=== PATIENT | male | born 1970 | race Caucasian/White ===

== ENCOUNTER 2020-11-16 10:19 | Day surgery (SDC) | payer OTHER ==
[~2020-11-16] VITALS: Ht 170.2 cm; Wt 82.0 kg
[2020-11-16 11:38] LABS: CHLORIDE 105 mEq/L (98-107)
[2020-11-16 11:40] LABS: BASOPHILS % 1.9 % (0.0-2.0); EOSINOPHILS % 2.4 % (0.0-5.0); HEMATOCRIT. 41.2 % (42.0-52.0); HEMOGLOBIN. 14.4 g/dL (14.0-18.0); MEAN CORPUSCULAR HEMOGLOBIN 31.2 pg (28.0-32.0); MEAN CORPUSCULAR VOLUME 89.3 fL (80.0-94.0); MEAN PLATELET VOLUME 7.7 fl (7.4-10.4); MONOCYTES % 9.3 % (2.0-8.0); NEUTROPHILS % 44.4 % (40.0-76.0); PLATELET 298 x1000/uL (130-400); PROTHROMBIN TIME 10.2 sec (9.6-11.0); RED BLOOD CELL COUNT 4.62 mill/uL (4.7-6.1); RED CELL DISTRIBUTION WIDTH 12.7 % (11.6-14.6)
[2020-11-16] MEDS ORDERED: MIDAZOLAM HCL 2 MG/2 ML VIAL ONE ×3 (11:44→13:29)
[2020-11-16] MEDS ORDERED: FENTANYL CITRATE/PF 50MCG/ML 2ML VIAL ONE (11:44)
[2020-11-16] MEDS ORDERED: ROCURONIUM BROMIDE 10MG/ML VIAL 5ML IV ONE (11:44)
[2020-11-16] MEDS ORDERED: HYALURONATE SODIUM 10 MG/ML 0.55ML SYRINGE IO ONE ×2 (11:52→13:16)
[2020-11-16] MEDS ORDERED: BALANCED SALT IRRIG SOLN COMB1 500ML OP SCH (12:00)
[2020-11-16 12:12] VITALS: BP 139/92
[2020-11-16] MEDS ORDERED: TRYPAN BLUE 0.5 ML DISP.SYRIN IO ONE (12:46)
[2020-11-16] MEDS ORDERED: TROPICAMIDE 1% OPHTH DROPS 15ML LEFTEYE ONE (13:00)
[2020-11-16] MEDS ORDERED: CYCLOPENTOLATE HCL 1% OPHTH DROPS 2ML LEFTEYE ONE (13:00)
[2020-11-16] MEDS ORDERED: PHENYLEPHRINE HCL 10% OPHTH DROPS 5ML LEFTEYE ONE (13:00)
[2020-11-16] MEDS ORDERED: EPHEDRINE SULFATE 50MG/ML VIAL ONE (13:15)
[2020-11-16] MEDS ORDERED: PROPOFOL 200MG/20ML VIAL IV ONE ×2 (13:15→13:37)
[2020-11-16] MEDS ORDERED: LIDOCAINE HCL 1% 20ML VIAL (Pyxis) INJ ONE (13:16)
[2020-11-16] MEDS ORDERED: PROPOFOL 10MG/ML 100ML 100 ML IV ONE (13:42)
[2020-11-16] MEDS ORDERED: DEXAMETHASONE 4MG/ML 1ML VIAL ONE (13:57)
[2020-11-16] MEDS ORDERED: ONDANSETRON HCL 4MG/2ML INJ ONE (13:58)
[2020-11-16] MEDS ORDERED: LIDOCAINE HCL/PF 2% 20 MG/ML 10ML VIAL ONE (14:00)
[2020-11-16] MEDS ORDERED: LIDOCAINE HCL 2%/EPINEPHRINE 1:100,000 20 ML VIAL INFIL ONE (14:00)
[2020-11-16] MEDS ORDERED: BUPIVACAINE HCL/PF 0.75% (7.5MG/ML) 10ML ONE (14:00)
[2020-11-16] MEDS ORDERED: CIPROFLOXACIN 0.3% OPHTH SOLN 2.5ML ONE (14:00)
[2020-11-16] MEDS ORDERED: PREDNISOLONE ACETATE 1% OPHTH DROPS 5ML ONE (14:00)
[2020-11-16] MEDS ORDERED: BALANCED SALT IRRIG SOLN 15ML ONE (14:00)
[2020-11-16] MEDS ORDERED: TETRACAINE 0.5% OPHTH DROPS 4ML ONE (14:00)
[2020-11-16] MEDS ORDERED: MEPERIDINE HCL/PF 25MG/ML CPJ IV PRN (14:15)
[2020-11-16] MEDS ORDERED: METOCLOPRAMIDE HCL 10MG/2ML VIAL IV PRN (14:15)
[2020-11-16] MEDS ORDERED: ONDANSETRON HCL 4MG/2ML INJ IV PRN (14:15)
== END 2020-11-16 15:45 | disposition home or self-care (01) ==
LOC: ER 10:19 → OR 14:11
PROVIDERS: ATTEND Ophthalmology
DX: H25.22 Age-related cataract, morgagnian type, left eye (principal); H40.52X0 Glaucoma secondary to other eye disorders, left eye, stage unspecified; Z79.899 Other long term (current) drug therapy; Z98.890 Other specified postprocedural states; Z83.3 Family history of diabetes mellitus; Z72.89 Other problems related to lifestyle
CPT/HCPCS: 36415; 66850; 67005; 71045; 80053; 85025; 85610; 87426; 93005; 99285; J1100; J2250; J2405; J2704; J3010; J3490; Q9957